=== PATIENT | male | born 2005 | race Caucasian/White ===

== ENCOUNTER 2024-02-17 06:14 | Day surgery (SDC) | payer BC ==
[2024-02-11 12:00] VITALS: BMI 27.7
[2024-02-17] MEDS ORDERED: AFRIN NASAL MIST 15 ML BOT ONE ×2 (07:54→08:25)
[2024-02-17] MEDS ORDERED: Oxymetazoline HCl 0.05% ( 15 ML ) ONE (08:00)
[2024-02-17] MEDS ORDERED: Fentanyl 250 MCG/5 ML VIAL ONE (08:22)
[2024-02-17] MEDS ORDERED: PROPOFOL 20 ML ONE ×2 (08:22→08:23)
[2024-02-17] MEDS ORDERED: Midazolam HCl 2 mg/2 ml Vial ONE (08:22)
[2024-02-17] MEDS ORDERED: Ondansetron PF 4 MG/2 ML Vial ONE (08:23)
[2024-02-17] MEDS ORDERED: Dexamethasone 20 MG/5 ML VIAL ONE (08:23)
[2024-02-17] MEDS ORDERED: Lidocaine 1% PF 5 ML VIAL ONE (08:23)
[2024-02-17] MEDS ORDERED: Lidocaine 1% (PF) 30 ML VIAL ONE (08:25)
[2024-02-17] MEDS ORDERED: EPINEPHrine 1 MG/ML VIAL ONE (08:25)
[2024-02-17] MEDS ORDERED: Mupirocin 2% Ointment 22 GM Tube ONE (08:26)
[2024-02-17] MEDS ORDERED: HYDROcodone/Acetaminophen 5/325 mg Tablet ONE (09:55)
== END 2024-02-17 11:00 | disposition home or self-care (01) ==
LOC: CSHSDC 06:14
PROVIDERS: ATTEND Otolaryngology Plastic Surgery within the Head & Neck
PROC: 0NSBXZZ Reposition Nasal Bone, External Approach (ICD-10-PCS; principal; 2024-02-17)
PROC: 09BM8ZZ Excision of Nasal Septum, Via Natural or Artificial Opening Endoscopic (ICD-10-PCS; principal; 2024-02-17)
PROC: 09TL8ZZ Resection of Nasal Turbinate, Via Natural or Artificial Opening Endoscopic (ICD-10-PCS; principal; 2024-02-17)
DX: J34.2 Deviated nasal septum (principal); J34.3 Hypertrophy of nasal turbinates; S02.2XXA Fracture of nasal bones, initial encounter for closed fracture; J34.89 Other specified disorders of nose and nasal sinuses; I10 Essential (primary) hypertension; F90.9 Attention-deficit hyperactivity disorder, unspecified type; Z90.49 Acquired absence of other specified parts of digestive tract; Z98.890 Other specified postprocedural states; Z79.899 Other long term (current) drug therapy; X58.XXXA Exposure to other specified factors, initial encounter
CPT/HCPCS: J0171; J1100; J2250; J2405; J2704; J3010